=== PATIENT | female | born 1985 | race Caucasian/White ===

== ENCOUNTER 2021-03-27 13:12 | Emergency (ER) | payer OTHER ==
[~2021-03-27] VITALS: Ht 170.2 cm; Wt 90.9 kg
[2021-03-27 14:28] VITALS: BP 117/81
[2021-03-27] MEDS ORDERED: PRED10TA23 PO (14:29)
[2021-03-27] MEDS ORDERED: PROM12.512 PO (14:30)
== END 2021-03-27 15:40 | disposition home or self-care (01) ==
LOC: ER 13:13
DX: U07.1 COVID-19 (principal); R19.7 Diarrhea, unspecified; R50.9 Fever, unspecified; Z79.899 Other long term (current) drug therapy; Z86.16 Personal history of COVID-19
CPT/HCPCS: 87635; 99283; C9803

== ENCOUNTER 2021-08-02 19:51 | Emergency (ER) | payer MEDICAID, OTHER ==
[~2021-08-02] VITALS: Ht 170.2 cm; Wt 95.5 kg
[~2021-08-02 19:51] MED LIST: PROM12.512 PO
[2021-08-02] MEDS ORDERED: CLIN150C8 PO (22:58)
[2021-08-02] MEDS ORDERED: ibuprofen tablet 400 MG TABLET PO ONE (23:00)
[2021-08-02] MEDS ORDERED: clindamycin 150mg capsule PO ONE (23:00)
[2021-08-02] MEDS ORDERED: ondansetron 4mg rapidly disintigrating tab PO ONE (23:00)
[2021-08-02] MEDS ORDERED: ibuprofen 200mg tablet PO ONE (23:05)
[2021-08-02 23:20] VITALS: BP 128/78
== END 2021-08-02 23:22 | disposition home or self-care (01) ==
LOC: ER 19:52
DX: L03.113 Cellulitis of right upper limb (principal); Z79.899 Other long term (current) drug therapy
CPT/HCPCS: 99284

== ENCOUNTER 2021-08-05 14:09 | Emergency (ER) | payer MEDICAID ==
[~2021-08-05] VITALS: Ht 170.2 cm; Wt 93.0 kg
[~2021-08-05 14:09] MED LIST changes: +CLIN150C8 PO
[2021-08-05 15:07] VITALS: BP 118/93
[2021-08-05] MEDS ORDERED: SULF1TAB49 PO (16:15)
[2021-08-05] MEDS ORDERED: MUPI22OI30 TOP (16:15)
== END 2021-08-05 16:25 | disposition home or self-care (01) ==
LOC: ER 14:10
DX: L03.113 Cellulitis of right upper limb (principal); L02.413 Cutaneous abscess of right upper limb; R19.7 Diarrhea, unspecified; Z79.2 Long term (current) use of antibiotics; Z79.899 Other long term (current) drug therapy; Z86.14 Personal history of Methicillin resistant Staphylococcus aureus infection
CPT/HCPCS: 99283